=== PATIENT | male | born 1970 | race Caucasian/White ===

== ENCOUNTER → 2017-04-30 | Outpatient (CLI) | payer MEDICARE, MEDICAID ==
--- NOTE | 2017-04-30 13:44 | RADIOLOGY REPORT PS360 ---
US ABD(COMPLETE-MULTI ORGANS HISTORY: Cirrhosis, elevated liver enzymes ELEVATED LIVER ENZYMES ORDERING PHYSICIAN: JONES CROSS PATIENT AGE: 46 years COMPARISON: 12/30/2016 FINDINGS: PANCREAS:Unremarkable. No obvious mass or abnormal fluid collection. No ductal dilatation LIVER:There is slight increased echogenicity of the liver with decreased through transmission of sound consistent with hepatic steatosis. No focal liver lesion evident. No delayed dilatation. There is appropriate direction of blood flow within the portal vein. The portal vein is not enlarged measuring 9 mm. RIGHT KIDNEY:Unremarkable. Normal size and echogenicity. No hydronephrosis LEFT KIDNEY:Unremarkable. No hydronephrosis. Normal size and echogenicity. GALLBLADDER:No gallstones, gallbladder wall thickening, pericholecystic fluid, or biliary dilatation. AORTA:No evidence of aneurysmal dilatation. SPLEEN:Spleen is enlarged at 16 cm ASCITES:None demonstrated. IMPRESSION: 1. Hepatic steatosis with splenomegaly 2. Appropriate direction of blood flow within the portal vein. Portal vein is within normal limits in size
== END ==
LOC: RAD 08:00
DX: R94.5 Abnormal results of liver function studies (principal)